=== PATIENT | male | born 1975 | race Caucasian/White ===

== ENCOUNTER 2016-10-05 20:31 | Inpatient (IN) | payer OTHER ==
[~2016-10-05] VITALS: Ht 177.8 cm; Wt 95.3 kg
[~2016-10-05 20:31] MED LIST: CLONAZEPAM1 MG PO; METOPROLOL TAR100 MG PO
--- NOTE | 2016-10-05 21:05 | NUR ---
PT TO ED REQUESTING DETOX FROM ETOH. PMH OF SEIZURES WHEN HE STOPS DRINKING "ON DAY 5" PER MOM. PT C/O ?BENZO WITHDRAWAL. PMH OF ANXIETY, NO BENZOS 3 DAYS. PMH OF ETOH DEPENDANCE. DRANK A PINT OF VOD[place] TODAY, LAST ON THE WAY HERE. MOM ANSWERING MOST QUESTIONS. PT FALLING ASLEEP IN TRIAGE. BP 88/57. PT STATES "I FEEL LIKE MY BLOOD PRESSURE IS THROUGH THE ROOF" "MOM, THIS IS THE WORST WITHDRAWAL I'VE BEEN THROUGH"
--- NOTE | 2016-10-05 21:09 | NUR ---
TO SHANKAR Rondon
--- NOTE | 2016-10-05 21:12 | ED PSYCHIATRIC COMPLAINT ---
History of Present Illness General Chief Complaint: ETOH/Drug Related Complaint Stated Complaint: ETOH Source: patient Exam Limitations: intoxication Vital Signs & Intake/Output Vital Signs & Intake/Output Vital Signs Date Time Temp Pulse Resp B/P B/P Pulse O2 O2 Flow FiO2 Mean Ox Delivery Rate 10/06 1541 97.2 84 14 178/84 10/06 1535 97.2 84 14 17884 Room Air 10/06 1421 98.4 90 18 166/78 10/06 1310 97.2 89 18 182/86 10/06 1309 97.2 89 18 182/86 98 Room Air 10/06 1142 97.1 88 16 120/76 10/06 1140 97.1 88 16 120/76 98 Room Air 10/06 0948 98.9 94 18 122/88 10/06 0946 98.9 94 18 122/88 98 Room Air 10/06 0841 97.9 16 16 110/70 98 Room Air 10/06 0837 97.9 88 16 110/70 10/06 0700 97.1 82 16 104/66 95 Room Air 10/06 0659 97.1 82 16 104/66 10/06 0454 98.2 77 16 105/59 10/06 0453 98.2 77 16 105/59 94 Room Air 10/06 0330 18 10/05 2309 62 22 124/84 10/05 2140 Room Air 10/05 2059 98.1 84 16 88/57 96 Room Air ED Intake and Output 10/06 0000 10/05 1200 Intake Total Output Total Balance Patient 200 lb Weight Weight Estimated Measurement Method Allergies Coded Allergies: NO KNOWN ALLERGIES (08/07/14) Reconcile Medications Acamprosate Calcium (Unknown Strength) TABLET.DR (Unknown Dose) UNKNOWN ( Reported) Bupropion HCl (Bupropion XL) 150 MG TAB.ER.24H 1 TAB PO DAILY MENTAL HEALTH ( Reported) Bupropion HCl (Bupropion XL) 300 MG TAB.ER.24H 1 TAB PO QAM MENTAL HEALTH ( Reported) Escitalopram Oxalate 20 MG TABLET 1 TAB PO DAILY MENTAL HEALTH (Reported) Lorazepam 0.5 MG TABLET 1 TAB PO PRN ANXIETY (Reported) Metoprolol Tartrate 100 MG TABLET 1 TAB PO BID HEART/BP (Reported) Multivitamin (Multi-Day Vitamins) 1 EACH TABLET 1 TAB PO DAILY MENTAL HEALTH (Reported) Valsartan/Hydrochlorothiazide (Valsartan-Hctz 160-12.5 MG Tab) 160 MG-12.5 MG TABLET 1 TAB PO DAILY BP (Reported) Triage Note: PT TO ED REQUESTING DETOX FROM ETOH. PMH OF SEIZURES WHEN HE STOPS DRINKING "ON DAY 5" PER MOM. PT C/O ?BENZO WITHDRAWAL. PMH OF ANXIETY, NO BENZOS 3 DAYS. PMH OF ETOH DEPENDANCE. DRANK A PINT OF VOD[place] TODAY, LAST ON THE WAY HERE. MOM ANSWERING MOST QUESTIONS. PT FALLING ASLEEP IN TRIAGE. BP 88/57. PT STATES "I FEEL LIKE MY BLOOD PRESSURE IS THROUGH THE ROOF" "MOM, THIS IS THE WORST WITHDRAWAL I'VE BEEN THROUGH" Triage Nurses Notes Reviewed? yes Onset: Abrupt Duration: day(s): (4-5) Timing: recent history Severity: moderate, severe Associated Symptoms: anxiety HPI: 40 year old with history of HTN and alcohol abuse who presents for alcohol intoxication. 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 4 days ago he started with 2 bottles of vodka. yesterday he had 1 bottle of vodka and today he drank 3/4 of a bottle. Last drink 8:30 this evening. History of DT's, last seizure 1 year ago. Patient is compliant with metoprolol but unsure about being compliant with other meds because of drinking out to the point of intoxication. No head injuries or seizure activity in the past 4 days. Also reports RLQ abdominal pain. Not eating/drinking properly. Per girlfriend ? passive suicidality. Patient is not si/hi at this time. (GENO OLIVERA MD) Past History Travel History Traveled to [place] past 21 day No Medical History Any Pertinent Medical History? see below for history Neurological: vertigo EENT: allergies Cardiovascular: hypertension, hyperlipidemia Respiratory: bronchitis Gastrointestinal: GERD, POLYP REMOVED Hepatic: ELEVATED LIVER ENZYMES Renal: NONE Musculoskeletal: chronic back pain Psychiatric: alcohol dependence, anxiety, depression Endocrine: diabetes Surgical History Surgical History: non-contributory Psychosocial History Who do you live with Family What is your primary language Malay Tobacco Use: Current Daily Use Daily Tobacco Use Amount/Type: => 5 Cigarettes daily ETOH Use: alcoholic Illicit Drug Use: denies illicit drug use Family History Comment: DM Hx Contributory? No (GENO OLIVERA MD) Review of Systems Review of Systems Constitutional: Denies: chills, fever. EENTM: Reports: no symptoms. Respiratory: Denies: cough, short of breath. Cardiovascular: Denies: chest pain. GI: Reports: abdominal pain. Denies: nausea, vomiting. Genitourinary: Denies: discharge, dysuria. Musculoskeletal: Denies: back pain. Skin: Reports: no symptoms. Neurological/Psychological: Reports: no symptoms. Hematologic/Endocrine: Denies: bruising, bleeding, polyuria, polydipsia. Immunologic/Allergic: Reports: see HPI. All Other Systems: Reviewed and Negative (GENO OLIVERA MD) Physical Exam Physical Exam General Appearance: well developed/nourished, alert, awake, mild distress Head: atraumatic Eyes: Bilateral: PERRL, EOMI. Ears, Nose, Throat: normal pharynx, normal ENT inspection, hearing grossly normal Neck: normal inspection, supple Respiratory: normal breath sounds Cardiovascular: regular rate/rhythm Gastrointestinal: soft, non-tender Extremities: normal range of motion Neurological/Psychiatric: awake, alert, calm Appearance/Memory/Insight: disheveled, impaired insight Behavoir/Eye Contact/Speech: decreased rate of speech Skin: intact, normal color, warm/dry SAD PERSONS Done? patient not suicidal (GENO OLIVERA MD) Progress Differential Diagnosis: ALCOHOL ABUSE, ALCOHOL DEPENDENCE, ETOH WITHDRAWAL Plan of Care: Orders Procedure Date/time Status Regular Diet 10/06 D Active Regular Diet 10/06 B Complete Patient Data 10/06 161 Active OXYGEN SETUP (GEN) 10/06 161 Active Saline Lock 10/06 1611 Active Admit to inpatient 10/06 1611 Active Vital Signs 10/06 1611 Active Activity/Ambulation 10/06 1611 Active Code Status 10/06 1611 Active CASE MANAGEMENT CONSULT 10/06 0954 Active URINE DRUG SCREEN FOR ER ONLY 10/06 0851 Complete Add-on Test (ER Only) 10/06 2203 Active URINALYSIS 10/06 2203 Complete LIPASE 10/05 2134 Complete CIWA 10/06 2123 Active URINE DRUGS OF ABUSE 10/05 2122 Active MAGNESIUM 10/05 2122 Complete ETHANOL 10/05 2122 Complete COMPREHENSIVE METABOLIC PANEL 10/05 2122 Complete CBC WITHOUT DIFFERENTIAL 10/05 2122 Complete Current Medications Sig/Erick Start time Last Medication Dose Stop Time Status Admin Lorazepam 2 MG Q2P PRN 10/06 1000 AC 10/06 (Ativan) 1426 Lorazepam 1 MG ONE PRN 10/06 1000 AC (Ativan) Laboratory Tests 10/06/16 0855: Urine Opiates Screen < 100.00, Methadone Screen 41, Barbiturate Screen < 60, Ur Phencyclidine Scrn < 6.00, Amphetamines Screen 367, U Benzodiazepines Scrn < 85, Urine Cocaine Screen < 50, Urine Cannabis Screen < 5.00, Urine Color YEL, Urine Clarity HAZY H, Urine pH 6.0, Ur Specific [place] 1.025, Urine Protein 30 H, Urine Ketones TRACE H, Urine Nitrite NEG, Urine Bilirubin NEG@ICTO, Urine Urobilinogen 0.2, Ur Leukocyte Esterase NEG, Ur Microscopic SEDIMENT EXAMINED, Urine RBC RARE, Urine WBC 3-5 H, Urine Bacteria FEW H, Hyaline Casts 15-25 H, Urine Mucus FEW, Urine Hemoglobin NEG, Urine Glucose NEG 10/05/16 2135: Anion Gap 17 H, Estimated GFR 49 L, BUN/Creatinine Ratio 12.5, Glucose 118 H, Calcium 9.9, Magnesium 2.0, Total Bilirubin 0.5, AST 72 H, ALT 71, Alkaline Phosphatase 68, Total Protein 8.0, Albumin 5.0, Globulin 3.0, Albumin/Globulin Ratio 1.7, Lipase 162, CBC w Diff NO MAN DIFF REQ, RBC 5.00, MCV 92.0, MCH 30.4, RDW 14.1, MPV 8.4, Gran % 67.6, Lymphocytes % 22.4, Monocytes % 7.6, Eosinophils % 1.8, Basophils % 0.6, Absolute Granulocytes 9.5 H, Absolute Lymphocytes 3.1, Absolute Monocytes 1.1 H, Absolute Eosinophils 0.3, Absolute Basophils 0.1, PUBS MCHC 33.0, Serum Alcohol 400.0 10:47 PM PATIENT REPORTS HE NEEDS ATIVAN FOR BENZO WITHDRAWAL. I EXPLAINED TO HIM THE ALCOHOL DETOX PROTOCOL. ETOH LEVEL IS 400. (JOSELIN GILBERT,GENO) Hand-Off Endorsed To: MIKE MONTGOMERY MD Endorsed Time: 0700 Pending: other (SOBRIETY, CIWA SCORE) (GENO OLIVERA MD) Comments: Ativan prescribed for increasing CIWA. Certified for hospitalization by case management. (MIKE MONTGOMERY MD) Departure Departure Disposition: STILL A PATIENT Condition: Stable Referrals: ARMANDO GILBERT,JUNI Smith JR Additional Instructions: FOLLOW UP WITH THE LIST OF ALCOHOL DETOX CLINICS Departure Forms: Customer Survey General Discharge Information (JOSELIN GILBERT,GENO) Departure Clinical Impression Primary Impression: Alcohol intoxication Qualifiers: Complication of substance-induced condition: with unspecified complication Qualified Code: F10.929 - Alcohol use, unspecified with intoxication, unspecified Admission Note Spoke With: SULY EDGE MD Documentation of Exam: Documentation of any treatments & extenuating circumstances including Concerns Regarding Discharge (functional status, medication knowledge or non-compliance, living conditions, etc.) that warrant an admission rather than observation: Serial CIWA benzodiazepine to prevent alcohol withdrawal DT seizure medication adjustment psychiatric evaluation for alcohol dependence continuing care discharge planning. Alcohol Withdrawl Admission ED Alcohol Detox Admission d/t: CIWA Score >15, Acute MedCond D/T Alcohol (MIKE MONTGOMERY MD)
--- NOTE | 2016-10-05 21:21 | NUR ---
BLOOD PRESSURE RECHECK DONE AND WAS 90/68 IV STARTED BY PINKY BERTRAND AND IVF BOLUS STARTED
[2016-10-05] MEDS ORDERED: BUPROPION XL150 MG PO (21:23)
[2016-10-05] MEDS ORDERED: METOPROLOL TAR100 M1 PO (21:23)
[2016-10-05] MEDS ORDERED: VALSARTAN-HCTZ1 EAC1 PO (21:23)
[2016-10-05] MEDS ORDERED: ACAMPROSATE CA333 M1 (21:24)
[2016-10-05] MEDS ORDERED: ESCITALOPRAM OX20 MG PO (21:24)
[2016-10-05] MEDS ORDERED: LORAZEPAM0.5 M1 PO (21:24)
[2016-10-05] MEDS ORDERED: BUPROPION XL300 M1 PO (21:25)
[2016-10-05] MEDS ORDERED: MULTI-DAY VITA1 EACH PO (21:26)
[2016-10-05 21:57] LABS: ABSOLUTE BASOPHIL COUNT 0.1 /CUMM (0.0-0.2); ABSOLUTE EOSINOPHIL COUNT 0.3 /CUMM (0.0-0.7); ABSOLUTE GRANULOCYTE CT 9.5 /CUMM (1.4-6.5); ABSOLUTE LYMPH COUNT 3.1 /CUMM (1.2-3.4); ABSOLUTE MONOCYTE COUNT 1.1 /CUMM (0.10-0.60); BASOPHIL % 0.6 % (0.0-2.0); EOSINOPHIL % 1.8 % (0-5); GRANULOCYTE % 67.6 % (42.2-75.2); MEAN CORPUSCULAR HGB 30.4 PG (27.0-31.0); MEAN PLATELET VOLUME 8.4 FL (7.4-10.4); PLATELET COUNT 243 /CUMM (130-400); RBC DISTRIBUTION WIDTH 14.1 % (11.5-14.5)
--- NOTE | 2016-10-05 22:39 | NUR ---
DR OLIVERA WITH PATIENT
--- NOTE | 2016-10-05 23:18 | NUR ---
PT MED WITH 2 MG PO ATIVAN ORDERED
[2016-10-06] VITALS (15 sets, daily range): BP systolic 104–182; BP diastolic 59–102
--- NOTE | 2016-10-06 01:00 | NUR ---
PATIENT CHANGED INTO HOSPITAL ISSUED SCRUBS PER PROTOCOL. CLOTHING AND VALUABLES WITH FAMILY
--- NOTE | 2016-10-06 03:30 | NUR ---
THIS RN ASSUMED CARE FOR PATIENT AT THIS TIME. REPORT FROM NIMA BERTRAND. PATIENT RESTING COMFORTABLY IN NO ACUTE DISTRESS AT THIS TIME. AWOKE PATIENT W/O DIFFICULTY TO VERBAL STIMULI. DENIES COMPLAINTS.
--- NOTE | 2016-10-06 04:55 | NUR ---
PT SLEEPING. VSS. NO TREMORS NOTED. CIWA 0
--- NOTE | 2016-10-06 07:01 | NUR ---
ASSUMED CARE AT THIS TIME, PT AWAKE ALERT AND ORIENTED FOR VITALS, STATES THAT HE FEELS LIKE HIS HEART IS GOING TO JUMP OUT OF HIS CHEST, HR 82, COMPLAINS OF FEELING MILD TREMORS, NO VISIBLE TREMORS NOTED AT THIS TIME. CIWA 2
--- NOTE | 2016-10-06 08:42 | NUR ---
PT AWAKE AND ALERT AND AMBULATED TO BATHROOM WITH STEADY GAIT. PT PROVIDED WITH URINE CUP. PT COMPLAINS OF FEELING SLIGHTLY SHAKEY, NO VISIBLE TREMORS NOTED
--- NOTE | 2016-10-06 09:49 | NUR ---
PT COMPLAINS OF HEADACHE SLIGHT NAUSEA , ACHEY ALL OVER , FEELING SWEATY AND SHAKEY. JOON Ernandez MD AWARE
--- NOTE | 2016-10-06 09:55 | NUR ---
PT MEDICATED WITH 2 M G PO ATIVAN PER ORDER FOR CIWA 16. PT REMAINS CALM AND COPERATIVE
--- NOTE | 2016-10-06 11:41 | NUR ---
PT AWAKE AND ALERT AT THIS TIME, STATES THAT HE FEELS A LITTLE BETTER AFTER MEDICINE. PT PROVIDED WITH FOOD TRAY
--- NOTE | 2016-10-06 13:10 | NUR ---
JOON 7 AT THIS TIME, PT COMPLAINS OF FEELING SWEATY, AND JONAH, REHAN TREMORS NOTED AND NO SWEATING NOTED AT THIS TIME . PT WAS SEEN BY CASE MANAGEMENT AND IS UP TO BATHROOM AT THIS TIME
--- NOTE | 2016-10-06 13:20 | NUR ---
Case mgmnt TSF: I introduced myself to patient and explained my role. Patient is still requesting detox. Patient has given verbal consent and consents have been signed. I explained process and made patient aware that I would keep him updated. Case mgmnt continuing to follow.
--- NOTE | 2016-10-06 14:10 | NUR ---
Case mgmt TSF: I have submitted request for auth for patient. I will continue to monitor for possible approval. Case mgmnt continuing to follow.
--- NOTE | 2016-10-06 14:26 | NUR ---
PT MEDICATED WITH 2 MG PO ATIVAN FOR CIWA OF 15. PT NOTED WITH VISIBLE SWEAT BEADS TO FOREHEAD AND MILD VISIBLE TREMORS. COMPLAINS OF SLIGHT HEADACHE AND NAUSEA
--- NOTE | 2016-10-06 15:19 | NUR ---
REPORT RECEIVED; CARE OF PATIENT ASSUMED
--- NOTE | 2016-10-06 17:36 | NUR ---
PT AMBULATE TO RESTROOM. VERBALIZED IMPROVED ANXIETY FROM EARLIER TODAY
--- NOTE | 2016-10-06 18:04 | NUR ---
PT HAS A BED 210-2
--- NOTE | 2016-10-06 18:04 | CT SCAN REPORT ---
EXAMINATION: CT HEAD WITHOUT CONTRAST CLINICAL INFORMATION: Fall 2 days ago. Hit head. COMPARISON: None TECHNIQUE: Contiguous axial imaging was performed from the skull base to vertex without intravenous administration of contrast. DLP: 606.38 mGy-cm FINDINGS: There is no evidence of acute intracranial hemorrhage or territorial infarction. No abnormal mass effect or midline shift is seen. Tuttle to white matter differentiation is well preserved. No extra-axial fluid collections are identified. The ventricles are normal in size. There is no abnormal attenuation within the brain parenchyma. The osseous structures and soft tissues are normal. Small focus of mucosal thickening left ethmoid sinus. Mastoid air cells and middle ear cavities are normally aerated. IMPRESSION: No acute intracranial pathology.
--- NOTE | 2016-10-06 18:05 | History & Physical ---
PEREZ GILBERT,ZHAO 10/06/16 1748: General Information and HPI MD Statement: I have seen and personally examined JULY VERDUGO and documented this H&P. The patient is a 40 year old M who presented with a patient stated chief complaint of [alcohol detoxification]. 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 He His last intoxication was 6 weeks ago, recently 4 days ago because he ran out of the [employer] that was keeping him sober. Started with 2 bottles of vodka, yesterday he had 1 bottle of vodka and today he drank 3/4 of a bottle. Last drink 8:30 this evening. He was very agitated by the time he arrived to ER and most of the questions are answered by his mother. However by the time we interviewed he is doing better, he reported he fell down 2 days ago which resulted in mild head strike with left shoulder & chest pain along with slight erythema on his left conjunctiva. He did report occasional headache, nausea, vomiting and shakiness in his hands after he arrived to ER. He did discharge to rehabilitation services previously without any sucess -- reports depression being the reason behind the issue. He reports pain in his right upper quadrant which he attributes to alcohol -- never evaluated for alcohol related liver injury in the past. He smokes half a pack per day denies any drug use He follows psychiatrist in [facility] Dr. Stanley Allergies/Medications Allergies: Coded Allergies: NO KNOWN ALLERGIES (08/07/14) Home Med list Bupropion HCl (Bupropion XL) 150 MG TAB.ER.24H 1 TAB PO DAILY MENTAL HEALTH ( Reported) Bupropion HCl (Bupropion XL) 300 MG TAB.ER.24H 1 TAB PO QAM MENTAL HEALTH ( Reported) Escitalopram Oxalate 20 MG TABLET 1 TAB PO DAILY MENTAL HEALTH (Reported) Lorazepam 0.5 MG TABLET 1 TAB PO PRN ANXIETY (Reported) Metoprolol Tartrate 100 MG TABLET 1 TAB PO BID HEART/BP (Reported) Multivitamin (Multi-Day Vitamins) 1 EACH TABLET 1 TAB PO DAILY MENTAL HEALTH (Reported) Valsartan/Hydrochlorothiazide (Valsartan-Hctz 160-12.5 MG Tab) 160 MG-12.5 MG TABLET 1 TAB PO DAILY BP (Reported) Compliance With Home Meds: GOOD Past History Travel History Traveled to [place] past 21 day No Medical History Neurological: vertigo EENT: allergies Cardiovascular: hypertension, hyperlipidemia Respiratory: bronchitis Gastrointestinal: GERD, POLYP REMOVED Hepatic: ELEVATED LIVER ENZYMES Renal: NONE Musculoskeletal: chronic back pain Psychiatric: alcohol dependence, anxiety, depression Surgical History Surgical History: non-contributory Past Family/Social History Psychosocial History Where do you live? Home Who Do You Live With? parent Services at Home: None Smoking Status: Current Everyday Smoker ETOH Use: alcoholic Illicit Drug Use: denies illicit drug use Functional Ability ADLs Independent: dressing, eating, toileting, bathing. Ambulation: independent IADLs Independent: shopping, housework, finances, food prep, telephone, transportation , medication admin. Review of Systems Review of Systems Constitutional: Reports: see HPI. EENTM: Reports: see HPI. Cardiovascular: Reports: chest pain. Respiratory: Reports: see HPI. GI: Reports: see HPI. Skin: Reports: see HPI. Exam & Diagnostic Data Last 24 Hrs of Vital Signs/I&O Vital Signs Date Time Temp Pulse Resp B/P B/P Pulse O2 O2 Flow FiO2 Mean Ox Delivery Rate 10/06 1738 98.2 78 16 154/82 Room Air 10/06 1737 98.2 78 16 154/82 10/06 1637 96.9 84 16 132/84 10/06 1632 96.9 84 16 132/84 Room Air 10/06 1541 97.2 84 14 178/84 10/06 1535 97.2 84 14 178/84 Room Air 10/06 1421 98.4 90 18 166/78 10/06 1310 97.2 89 18 182/86 10/06 1309 97.2 89 18 182/86 98 Room Air 10/06 1142 97.1 88 16 120/76 10/06 1140 97.1 88 16 120/76 98 Room Air 10/06 0948 98.9 94 18 122/88 10/06 0946 98.9 94 18 122/88 98 Room Air 10/06 0841 97.9 16 16 110/70 98 Room Air 10/06 0837 97.9 88 16 110/70 10/06 0700 97.1 82 16 104/66 95 Room Air 10/06 0659 97.1 82 16 104/66 10/06 0454 98.2 77 16 105/59 10/06 0453 98.2 77 16 105/59 94 Room Air 10/06 0330 18 10/05 2309 62 22 124/84 10/05 2140 Room Air 10/05 2059 98.1 84 16 88/57 96 Room Air Intake & Output 10/06 1600 10/06 0800 10/06 0000 Intake Total Output Total Balance Patient 90.718 kg Weight Weight Estimated Measurement Method Physical Exam General Appearance Alert, Oriented X3, Cooperative, No Acute Distress Skin No Rashes, No Breakdown Skin Temp/Moisture Exam: Warm/Dry HEENT Atraumatic, PERRLA, EOMI Neck Supple, No JVD Cardiovascular Normal S1, Normal S2 Lungs Clear to Auscultation, Normal Air Movement, mild crackles at bases Abdomen Normal Bowel Sounds, Soft, No Tenderness, bruising in the left flank region Neurological Normal Gait, Normal Speech, Strength at 5/5 X4 Ext, Normal Tone, Sensation Intact, Cranial Nerves 3-12 NL Extremities No Clubbing, No Cyanosis, No Edema Vascular Normal Pulses, Pulses Symmetrical Body Front and Back (Adult) 1) conjunctival erythema 2) bruise secondary to fall 3) abdominal pain 4) shoulder and chest pain Last 24 Hrs of Labs/Brain: Laboratory Tests 10/06/16 0855: Urine Opiates Screen < 100.00, Methadone Screen 41, Barbiturate Screen < 60, Ur Phencyclidine Scrn < 6.00, Amphetamines Screen 367, U Benzodiazepines Scrn < 85, Urine Cocaine Screen < 50, Urine Cannabis Screen < 5.00, Urine Color YEL, Urine Clarity HAZY H, Urine pH 6.0, Ur Specific [place] 1.025, Urine Protein 30 H, Urine Ketones TRACE H, Urine Nitrite NEG, Urine Bilirubin NEG@ICTO, Urine Urobilinogen 0.2, Ur Leukocyte Esterase NEG, Ur Microscopic SEDIMENT EXAMINED, Urine RBC RARE, Urine WBC 3-5 H, Urine Bacteria FEW H, Hyaline Casts 15-25 H, Urine Mucus FEW, Urine Hemoglobin NEG, Urine Glucose NEG 10/05/16 2135: Anion Gap 17 H, Estimated GFR 49 L, BUN/Creatinine Ratio 12.5, Glucose 118 H, Calcium 9.9, Magnesium 2.0, Total Bilirubin 0.5, AST 72 H, ALT 71, Alkaline Phosphatase 68, Total Protein 8.0, Albumin 5.0, Globulin 3.0, Albumin/Globulin Ratio 1.7, Lipase 162, CBC w Diff NO MAN DIFF REQ, RBC 5.00, MCV 92.0, MCH 30.4, RDW 14.1, MPV 8.4, Gran % 67.6, Lymphocytes % 22.4, Monocytes % 7.6, Eosinophils % 1.8, Basophils % 0.6, Absolute Granulocytes 9.5 H, Absolute Lymphocytes 3.1, Absolute Monocytes 1.1 H, Absolute Eosinophils 0.3, Absolute Basophils 0.1, PUBS MCHC 33.0, Serum Alcohol 400.0 Assessment/Plan Assessment: Patient is a 40 YO M with PMH significant for Anxitey, 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 He is afebrile, pulse 84, blood pressure 88/57 mmHg, on room air at admission. Last significant for white count of 14, GFR 49, creatinine 1.6, hazy urine with trace ketones. AST/ALT 72/71, ALP 68. Serum alcohol level of 400. Patient is admitted for alcohol withdrawal as his see for scores in ER are around 15 requiring detoxification. Plan Admitted to general medicine floor Alcohol detoxification * Serum alcohol level of 400, history of seizures with the delirium tremens * Patient is at high risk for seizures and delirium tremens the next 48-72 hours * CIWA protocol with Ativan 2 mg every 6, every 6 hours, Ativan 1 mg every hour when necessary * Banana bag * Monitor electrolytes * Psych and social consult Mechanical fall * Chest pain/left shoulder pain/bruise in the left groin region * Left shoulder x-ray and CT scan head is negative for any acute pathology * Pain management ADELA * Creatinine 1.6 with GFR 49 * Fluids with normal saline @ 75ml/hr * Holding valsartan at this moment * Continue metoprolol 100 mg twice a day Depression * Continue Lexapro 20 mg daily DVT prophylaxis * Alps CODE STATUS * Full code As Ranked By This Provider Problem List: 1. Alcohol intoxication Qualifiers Complication of substance-induced condition: with unspecified complication Qualified Code: F10.929 - Alcohol use, unspecified with intoxication, unspecified 2. Alcohol abuse 3. ADELA (acute kidney injury) Core Measures/Miscellaneous Acute Coronary Syndrome ACS Diagnosis: No Cerebrovascular Accident CVA/TIA Diagnosis: No Congestive Heart Failure CHF Diagnosis: No VTE (View Protocol) VTE Risk Factors: Age > 40 [facility] d/t: No contraindications No VTE Pharm Prophylaxis d/t: No contraindications VTE Diagnosis: No VTE Type: NONE VTE Confirmed by (Test): NONE Sepsis (View Protocol) Severe Sepsis Present: No Septic Shock Septic Shock Present: No Miscellaneous Documentation Attending Case Discussed With: SULY EDGE MD Primary Care Physician: ANGELI BROWN MD Patient sees these Specialists unknown Level of Patient Care: General Medicine KELBY SAMSON 10/06/16 1807: Resident Review Statement Resident Statement: examined this patient, discussed with clinical nursing intern, agreed with clinical nursing intern Other Findings: This is a 40-year-old gentleman with past medical history significant for retention, depression, anxiety, EtOH dependence with history of withdrawal seizures(last seizure one year ago), who presents to the hospital for alcohol detox. According to the patient, he was sober for 1.5 months until 4 days ago when he started drinking again. He reports drinking 2 bottles of vodka. He also reports falling 2 days ago hitting left side of his head, landing on his left shoulder and left flank. Also has left lower quadrant abdominal pain. Denies SI/HI. Physical exam at the time of admission:VSS,NAD, HEENT: HNCAT, PERRLA, EOMI. Neck: Supple, no JVD, no carotid bruit, no lymphadenopathy. CV: RRR, no murmur. Chest: CTA BL. Abdomen: Normal bowel sounds, soft, ND, tenderness to palpation in right lower quadrant, no rebound. Extremities: Limited active range of motion left shoulder. Passive range of motion intact. No lower extremity edema , pulses normal and symmetrical. Limited range of motion on right lower extremity. Neurology:AAO 3, cranial nerves II-12 intact, normal reflexes skin: Ecchymosis noted on left flank. Available labs and Dx data reviewed. Problem list * ETOH withdrawal * Elevated creatinine * h/o HTN * anxiety/depression Plan: * Vs per protocol * CIWA * IV ativan per CIWA * PO ativan 2mg q6 * IV fluids * psych and social consult * smoking cessation counseling provided; patient would like to try [facility] to help him quit. * IV banana bag x1 * multivitamin /thiamine/folate starting tomorrow. * Head CT and shoulder/rib xray given h/o recent fall * c/w VALVER metoprolol and lexapro * Holding valsartan/HCTZ given elevated creatinine * DVT PPX at all times * Pt is full code SULY EDGE MD 10/07/16 1255: Attending MD Review Statement Attending Statement Attending MD Statement: examined this patient, discuss w/resident/PA/TOWER SUPERVISOR, agreed w/resident/PA/TOWER SUPERVISOR, reviewed EMR data (avail) Attending Assessment/Plan: 40M PMH EtOH abuse returns with agitation, unsteady gait, CIWA 15-20 in ED, with fall and left shoulder and rib pain. To be admitted for alcohol withdrawal, Ativan standing and PRN, CT head, rib x-ray, IV hydration, social work consult, DVT PPx.
--- NOTE | 2016-10-06 18:09 | NUR ---
PT HAS A BED 210-2
--- NOTE | 2016-10-06 18:27 | RADIOLOGY REPORT ---
EXAMINATION: RIBS AND SHOULDER, LEFT CLINICAL INFORMATION: Status post fall with pain and ecchymosis. COMPARISON: None TECHNIQUE: 4 views of the left shoulder, PA chest x-ray and 3 views of the left-sided ribs. FINDINGS: RIBS: There is mild deformity involving the posterior left ninth and 10th ribs laterally with findings most consistent with old healed fractures, no acute displaced fractures are identified. The cardiomediastinal silhouette is unremarkable. The lungs and pleural spaces appear clear without evidence of congestion, consolidation, or significant appearing effusion or atelectasis. There is no evidence of pneumothorax or pulmonary edema. Left shoulder: Bone mineral density is maintained without evidence of fracture or dislocation. No focal osseous lesions are seen. Joint space is maintained without productive or erosive changes. IMPRESSION: 1. Findings most consistent with old healed left rib fractures. 2. No acute fractures are identified. 3. The lungs are clear without evidence of contusion hemothorax or pneumothorax.
--- NOTE | 2016-10-06 18:57 | NUR ---
REPORT TO ANUM BERTRAND ON 2NB
[2016-10-07] VITALS: BP 144/80
[2016-10-07 06:52] VITALS: BP 136/74
--- NOTE | 2016-10-07 07:14 | PN- Housestaff ---
PEREZ GILBERT,ZHAO 10/07/16 0713: Subjective Follow-up For: Alcohol withdrawl Subjective: I saw and examined the patient today morning He is doing well, no overnight events. He reports shakiness in his hands. slept well. Review of Systems Constitutional: Reports: see HPI. Objective Last 24 Hrs of Vital Signs/I&O Vital Signs Date Time Temp Pulse Resp B/P B/P Pulse O2 O2 Flow FiO2 Mean Ox Delivery Rate 10/07 0652 98.1 90 16 136/74 97 Room Air 10/06 2230 98.7 89 16 144/80 96 Room Air 10/06 2139 89 144/80 10/06 2100 98.7 89 16 144/80 10/06 2000 99.0 95 18 142/102 10/06 1921 99.0 95 18 142/102 96 Room Air 10/06 1843 98.3 78 18 148/78 10/06 1842 98.3 78 18 148/78 Room Air 10/06 1738 98.2 78 16 154/82 Room Air 10/06 1737 98.2 78 16 154/82 10/06 1637 96.9 84 16 132/84 10/06 1632 96.9 84 16 132/84 Room Air 10/06 1541 97.2 84 14 178/84 10/06 1535 97.2 84 14 178/84 Room Air 10/06 1421 98.4 90 18 166/78 10/06 1310 97.2 89 18 182/86 10/06 1309 97.2 89 18 182/86 98 Room Air 10/06 1142 97.1 88 16 120/76 10/06 1140 97.1 88 16 120/76 98 Room Air 10/06 0948 98.9 94 18 122/88 10/06 0946 98.9 94 18 122/88 98 Room Air 10/06 0841 97.9 16 16 110/70 98 Room Air 10/06 0837 97.9 88 16 110/70 Intake & Output 10/07 0800 10/07 0000 10/06 1600 Intake Total 625 300 Output Total Balance 625 300 Intake, IV 625 Intake, Oral 300 Patient 95.254 kg Weight Weight Reported by Patient Measurement Method Physical Exam General Appearance: Alert, Oriented X3, Cooperative, No Acute Distress Skin: No Rashes, No Breakdown HEENT: Atraumatic, PERRLA, EOMI Neck: Supple Cardiovascular: Normal S1, Normal S2 Lungs: Clear to Auscultation, Normal Air Movement Abdomen: Normal Bowel Sounds, Soft, No Tenderness Neurological: Normal Gait, Normal Speech, Strength at 5/5 X4 Ext, Normal Tone, Sensation Intact Extremities: No Clubbing, No Cyanosis, No Edema Current Medications: Current Medications Sig/Erick Start time Last Medication Dose Route Stop Time Status Admin Cyanocobalamin/ 1 BAG 0 10/06 2130 DC 10/06 Thiamine/Pyridoxine IV 10/07 0529 2140 Sodium Chloride 1,000 ML Cyanocobalamin/ 1 BAG DAILY 10/06 1758 CAN Thiamine/Pyridoxine IV 10/07 0157 Sodium Chloride 1,000 ML Escitalopram Oxalate 20 MG DAILY 10/07 1000 AC PO Folic Acid 1 MG DAILY 10/07 1000 AC PO Lorazepam 0 .STK-MED ONE 10/06 1852 DC .ROUTE Lorazepam 0 Q1P PRN 10/06 1800 AC IV Lorazepam 2 MG Q6 10/06 1800 AC 10/07 PO 0550 Lorazepam 0 .STK-MED ONE 10/06 1431 DC PO Lorazepam 2 MG Q2P PRN 10/06 1000 AC 10/06 PO 2018 Lorazepam 1 MG ONE PRN 10/06 1000 AC PO Lorazepam 0 .STK-MED ONE 10/06 1000 DC PO Metoprolol Tartrate 100 MG BID 10/06 2200 AC 10/06 PO 2139 Multivitamins 1 TAB DAILY 10/07 1000 AC PO Nicotine 14 MG 2030 10/06 2030 AC 10/06 TOP 2051 Nicotine 14 MG DAILY 10/06 1920 PA TOP Thiamine HCl 100 MG DAILY 10/07 1000 AC PO Last 24 Hrs of Lab/Brain Results Last 24 Hrs of Labs/Mics: Laboratory Tests 10/06/16 0855: Urine Opiates Screen < 100.00, Methadone Screen 41, Barbiturate Screen < 60, Ur Phencyclidine Scrn < 6.00, Amphetamines Screen 367, U Benzodiazepines Scrn < 85, Urine Cocaine Screen < 50, Urine Cannabis Screen < 5.00, Urine Color YEL, Urine Clarity HAZY H, Urine pH 6.0, Ur Specific [place] 1.025, Urine Protein 30 H, Urine Ketones TRACE H, Urine Nitrite NEG, Urine Bilirubin NEG@ICTO, Urine Urobilinogen 0.2, Ur Leukocyte Esterase NEG, Ur Microscopic SEDIMENT EXAMINED, Urine RBC RARE, Urine WBC 3-5 H, Urine Bacteria FEW H, Hyaline Casts 15-25 H, Urine Mucus FEW, Urine Hemoglobin NEG, Urine Glucose NEG Assessment/Plan Assessment: Patient is a 40 YO M with PMH significant for Anxitey, 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 He is afebrile, pulse 84, blood pressure 88/57 mmHg, on room air at admission. Last significant for white count of 14, GFR 49, creatinine 1.6, hazy urine with trace ketones. AST/ALT 72/71, ALP 68. Serum alcohol level of 400. Patient is admitted for alcohol withdrawal as his see for scores in ER are around 15 requiring detoxification. Plan Admitted to general medicine floor Alcohol detoxification * Serum alcohol level of 400, history of seizures with the delirium tremens * Patient is at high risk for seizures and delirium tremens the next 48-72 hours * CIWA protocol with Ativan 1 mg every hour when necessary * Scheduled Ativan tapered to 2mg TID -- CIWA scores trending down * folic acid/thiamine/multivitamin * Monitor electrolytes * Psych and social consult Mechanical fall * Chest pain/left shoulder pain/bruise in the left groin region * Left shoulder x-ray and CT scan head is negative for any acute pathology * Pain management ADELA * Creatinine 1.6 with GFR 49 -- repeat BEP tomorrow * Fluids with normal saline @ 75ml/hr * Holding valsartan at this moment * Continue metoprolol 100 mg twice a day Depression * Continue Lexapro 20 mg daily * Bupropion discontinued at this moment * We will start on Campral 66mg TID on the day of discharge. DVT prophylaxis * Alps CODE STATUS * Full code Problem List: 1. Alcohol abuse 2. Alcohol intoxication 3. ADELA (acute kidney injury) Pain Ratin Pain Location: n/a Pain Goal: Pain 4 or less Pain Plan: tylenol prn Tomorrow's Labs & Rationales: bep to monitor Cr SULY EDGE MD 10/07/16 1256: Attending MD Review Statement Attending Statement Attending MD Statement: examined this patient, discuss w/resident/PA/ASSISTANT PROFESSOR OF ANTHROPOLOGY, agreed w/resident/PA/ASSISTANT PROFESSOR OF ANTHROPOLOGY, reviewed EMR data (avail) Attending Assessment/Plan: 40M PMH EtOH abuse admitted for alcohol withdrawal, unsteady gait, and fall. CT head negative. Rib and shoulder x-rays show old fractures, no acute. CIWA controlled overnight aside from a value of 20 at 8pm. Will continue current management.
[2016-10-07 08:00] VITALS: BP 136/74
--- NOTE | 2016-10-07 14:22 | NUR ---
Referral received this am via electronic border guard. This patient is a 40 year old man, admitted to the hospital yesterday afternoon with ETOH Withdrawal. Patient placed on the CIWA for observation; most recently scoring a 4 in the domains of anxiety and agitation. Overnight, he was as high as a 20. I met with patient this am. He was alert and orieted; pleasant and engaged in interview. Reports some "foggieness" related to ativan; he has received 11 mg in the past day. Thomas reports a detox inpatient at [facility] earlier this year; no formal aftercare plan. He did attend AA and has over the course ot years, found AA to be more helpful than an IOP "Where everyone is court mandated to attend". Currently ; Thomas lives with his mother in [place]. Sees his children once a week; his relationship with his ex- is contentious. Has seen a psychiatric provider in the past, but not sure of whether or not he wishes to continue. Has expressed interest in meeting with a clinician for [facility]; case discussed with Amber Salazar APRN from psychiatry. Thomas does not want a referral to IOP; says his preference would be return to AA and be able to work. Follow.
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
[2016-10-07 14:36] VITALS: BP 134/74
[2016-10-07 20:00] VITALS: BP 134/74
[2016-10-07 22:00] VITALS: BP 132/84
[2016-10-08] VITALS (8 sets, daily range): BP systolic 132–146; BP diastolic 84–98
--- NOTE | 2016-10-08 02:01 | NUR ---
NURSING NOTE: PT BP 140/92. DENIES ANY CARDIAC SX, VISUAL CHANGES, HEAD ACHE. HAS HX HTN. MD PADILLA NOTIFIED.
--- NOTE | 2016-10-08 07:08 | PN- Housestaff ---
PEREZ GILBERT,ZHAO 10/08/16 0707: Subjective Follow-up For: Alcohol withdrawl Subjective: I saw and examined the patient today morning He is looking much better, slept well. Able to eat and ambulate. Denies any headache, nausea, vomiting. Review of Systems Constitutional: Reports: see HPI. Comments: ROS negative except the above Objective Last 24 Hrs of Vital Signs/I&O Vital Signs Date Time Temp Pulse Resp B/P B/P Pulse O2 O2 Flow FiO2 Mean Ox Delivery Rate 10/08 0608 98.0 74 20 136/86 96 Room Air 10/08 0600 98.0 74 20 136/86 10/08 0400 97.9 83 18 132/84 10/08 0200 97.8 69 20 140/92 10/08 0158 140/92 10/08 0153 97.8 69 20 140/98 98 Room Air 10/08 0000 97.9 83 18 132/84 10/07 2200 97.9 83 18 132/84 10/07 2153 97.9 83 18 98 Room Air 10/07 2112 80 132/84 10/07 2000 98.0 88 18 134/74 10/07 1436 98.0 88 18 134/74 98 Room Air 10/07 1042 92 132/70 10/07 0800 98.1 90 16 136/74 Intake & Output 10/08 0800 10/08 0000 10/07 1600 Intake Total 276 287 3771 Output Total Balance 606 611 5460 Intake, IV 400 800 Intake, Oral 250 500 420 Physical Exam General Appearance: Alert, Oriented X3, Cooperative Skin: No Rashes, No Breakdown HEENT: Atraumatic, PERRLA, EOMI, erythema on the left conjunctival region Neck: Supple Cardiovascular: Normal S1, Normal S2 Lungs: Clear to Auscultation, Normal Air Movement Abdomen: Normal Bowel Sounds, Soft, No Tenderness Neurological: Normal Gait, Normal Speech, Strength at 5/5 X4 Ext, Normal Tone, Sensation Intact Extremities: No Clubbing, No Cyanosis, No Edema Current Medications: Current Medications Sig/Erick Start time Last Medication Dose Route Stop Time Status Admin Calcium Carbonate 500 MG ONCE ONE 10/07 2229 DC 10/07 PO 10/07 2230 2247 Escitalopram Oxalate 20 MG DAILY 10/07 1000 AC 10/07 PO 1041 Folic Acid 1 MG DAILY 10/07 1000 AC 10/07 PO 1041 Lorazepam 2 MG Q8 10/07 2200 AC 10/08 PO 0518 Lorazepam 0 Q1P PRN 10/06 1800 AC IV Lorazepam 2 MG Q6 10/06 1800 DC 10/07 PO 1226 Lorazepam 2 MG Q2P PRN 10/06 1000 AC 10/06 PO 2018 Lorazepam 1 MG ONE PRN 10/06 1000 AC 10/07 PO 1921 Metoprolol Tartrate 100 MG BID 10/06 2200 AC 10/07 PO 2112 Multivitamins 1 TAB DAILY 10/07 1000 AC 10/07 PO 1042 Nicotine 14 MG 2030 10/06 2030 AC 10/07 TOP 1921 Patient Medication 1 ED .STK-MED ONE 10/07 1330 DC Teaching ED 10/07 1331 Sodium Chloride 1,000 ML Q10H 10/07 0945 DC 10/07 IV 10/07 1944 1040 Thiamine HCl 100 MG DAILY 10/07 1000 AC 10/07 PO 1042 Last 24 Hrs of Lab/Brain Results Last 24 Hrs of Labs/Mics: Laboratory Tests 10/08/16 0608: Anion Gap 9, Estimated GFR > 60, BUN/Creatinine Ratio 22.5 Assessment/Plan Assessment: Patient is a 40 YO M with PMH significant for Anxitey, 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 He is afebrile, pulse 84, blood pressure 88/57 mmHg, on room air at admission. Last significant for white count of 14, GFR 49, creatinine 1.6, hazy urine with trace ketones. AST/ALT 72/71, ALP 68. Serum alcohol level of 400. Patient is admitted for alcohol withdrawal as his see for scores in ER are around 15 requiring detoxification. Plan Admitted to general medicine floor Alcohol detoxification * Serum alcohol level of 400, history of seizures with the delirium tremens * Patient is at high risk for seizures and delirium tremens the next 48-72 hours * CIWA scores trended down well, so tapered down to 1mg TID today-->1mg BID tomorrow --> 1mg once the next day * folic acid/thiamine/multivitamin * Psych and social consult -- appreciate their recommendations * Patient wants to follow up with his own psychiatrist for now. * Stable for discharge, however after discharge patient was not provided with scripts and he came back for script. * I spoke with his pharmacy ([email or web address]) -- gave scripts to them. He had an old prescription in his pharmacy (lorazepam 0.5mg) for a month which was discontinued by me. Patient requested to continue that. I informed clearly that I am not able to, as I already discontinued in his medications currently and I leave to my Psychiatrist decision for now -- Marie Peterson. Mechanical fall * Chest pain/left shoulder pain/bruise in the left groin region * Left shoulder x-ray and CT scan head is negative for any acute pathology * Pain management ADELA * Resolved with hydration -- resume hypertensive medications Depression * Continue Lexapro 20 mg daily * Bupropion discontinued at this moment * We will start on Campral 66mg TID on the day of discharge. DVT prophylaxis * Alps CODE STATUS * Full code Problem List: 1. Alcohol abuse 2. Alcohol intoxication 3. ADELA (acute kidney injury) Pain Ratin Pain Location: n/a Pain Goal: Pain 4 or less Pain Plan: tylenol prn Tomorrow's Labs & Rationales: NONE LUCIANO JOHNSON 10/08/16 0919: Assessment/Plan Assessment: Feels well. Low CIWA scores. Decrease Ativan to 2 mg Q12. Patient has plan in place. Discharge later today with two Ativan 2 mg pills (one tonight and one tomorrow), pending final plan with psych and social work. ADELA improved, pre renal, encouraged hydration. SULY EDGE MD 10/08/16 1119: Attending MD Review Statement Attending Statement Attending MD Statement: examined this patient, discuss w/resident/PA/ADMISSIONS CLERK, agreed w/resident/PA/ADMISSIONS CLERK, reviewed EMR data (avail) Attending Assessment/Plan: 40M PMH EtOH abuse admitted with alcohol withdrawal. Patient is doing extremely well today. He is at his baseline and is not displaying any signs or symptoms of withdrawal. CIWA scores controlled overnight. Hemodynamically stable. Patient is stable for discharge home with PO Ativan taper. He has seen our delinquency prevention social worker and is set up for outpatient follow up. He is motivated and committed to his sobriety.
[2016-10-08] MEDS ORDERED: ACAMPROSATE CA333 M1 PO ×2 (11:13→11:23)
[2016-10-08] MEDS ORDERED: ATIVAN1 M1 PO ×2 (11:27→11:33)
--- NOTE | 2016-10-08 11:31 | Patient Discharge Instructions ---
Discharge Instructions General Discharge Information You were seen/treated for: Alcohol detoxification Special Instructions: Please follow up with your PCP in a week Please start taking welbutrin from october 11 starting 150mg XL for 4days, followed by 300mg for the next 4days. After 8days of taking welbutrin call your psychiatrist. Please follow up with your current psychiatrist. If requires additional resources can follow up with [facility] program Diet Continue normal diet: Yes Activity Full Activity/No Limits: Yes Acute Coronary Syndrome Inclusion Criteria At DC or during hospital stay patient has or had the following: ACS DIAGNOSIS No Discharge Core Measures Meds if any: Prescribed or Continued at Discharge Meds if any: NOT Prescribed or Continued at Discharge Congestive Heart Failure Inclusion Criteria At DC or during hospital stay patient has or had the following: CHF DIAGNOSIS No Discharge Core Measures Meds if any: Prescribed or Continued at Discharge Meds if any: NOT Prescribed or Continued at Discharge Cerebrovascular accident Inclusion Criteria At DC or during hospital stay patient has or had the following: CVA/TIA Diagnosis No Discharge Core Measures Meds if any: Prescribed or Continued at Discharge Meds if any: NOT Prescribed or Continued at Discharge Venous thromboembolism Inclusion Criteria VTE Diagnosis No VTE Type NONE VTE Confirmed by (Test) NONE Discharge Core Measures - Per Current guidelines, there needs to be overlap - treatment for the first 5 days of Warfarin therapy. - If discharged on Warfarin prior to 5 days of - overlap therapy, the patient will need to be - assessed for post discharge needs including - *Post discharge parental anticoagulation - *Warfarin and/or parental anticoagulation education - *Follow up date to check INR post discharge At least 5 days overlap therapy as Inpatient No Meds if any: Prescribed or Continued at Discharge Note: Overlap Therapy is Warfarin and Anticoagulant Meds if any: NOT Prescribed or Continued at Discharge
--- NOTE | 2016-10-08 16:20 | Discharge Summary ---
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 He is afebrile, pulse 84, blood pressure 88/57 mmHg, on room air at admission. Last significant for white count of 14, GFR 49, creatinine 1.6, hazy urine with trace ketones. AST/ALT 72/71, ALP 68. Serum alcohol level of 400. Patient is admitted for alcohol withdrawal as his see for scores in ER are around 15 requiring detoxification. Plan Admitted to general medicine floor Alcohol detoxification Serum alcohol level of 400 at admission with history of seizures with the delirium tremens. His CIWA scores trended down well with hospital course remaining uneventful. So tapered down ativan per protocol 20-35% a day ( 2mg Q6 --> 2mg Q8 --> 1mg Q8 -->1mg Q12 --> 1mg once). A single banana bag at admission followed by folic acid/thiamine/multivitamin supplementation provided. Psych and social consulted. Patient wants to follow up with his own psychiatrist for now. Patient initially discharged without his scripts, however I spoke with his pharmacy and gave a script directly ([facility]). I discontinued his lorazepam 0.5mg (30) script at this time. However patient insisted on continuing it informing that his PCP (who gave the script) is on vacation and cannot work without the mediacation due to anxiety attacks. Patient declines communicating directly with his psychiatrist, so we managed patient as per the primary team and psychiatric recommendations. Mechanical fall 2 days prior to admission fell down while trying to switch on light in a dark room. At admission found to have Chest pain/left shoulder pain/bruise in the left groin region. Left shoulder x-ray and CT scan head is negative for any acute pathology. Symptomatic treatment provided. ADELA At admission had a Cr of 1.6 with GFR 49, back to baseline after adequate rehydration. He was continued on metoprolol 100 mg twice a day holding valsartan initially. Eventually continued all the medications at discharge. Depression he was continued on Lexapro 20 mg daily. He discontinued Bupropion at this moment. We will start on Campral 66mg TID on the day of discharge. DVT prophylaxis Alps Complications: none Allergies: Coded Allergies: NO KNOWN ALLERGIES (08/07/14) Significant Procedures: head CT at admission on 10/06/16 IMPRESSION: No acute intracranial pathology. Rib Xray and shoulder xray - left side at admission on 10/06/16 IMPRESSION: 1. Findings most consistent with old healed left rib fractures. 2. No acute fractures are identified. 3. The lungs are clear without evidence of contusion hemothorax or pneumothorax. Pertinent Lab Results: as above Disposition Summary Disposition Principal Diagnosis: Alcohol detoxification Additional Diagnosis: Mechanical fall ADELA Discharge Disposition: home or self care Discharge Instructions General Discharge Information Code Status: Full Code Patient's Diet: Regular diet Patient's Activity: Full activity as tolerated Follow-Up Instructions/Appts: Please follow up with your PCP in a week Please start taking welbutrin from october 11 starting 150mg XL for 4days, followed by 300mg for the next 4days. After 8days of taking welbutrin call your psychiatrist. Please follow up with your current psychiatrist. If requires additional resources can follow up with [facility] program Medications at Discharge Discharge Medications: Stop taking the following medications: Lorazepam (Lorazepam) 0.5 MG TABLET ORAL as needed for ANXIETY Qty = 45 Continue taking these medications: Metoprolol Tartrate (Metoprolol Tartrate) 100 MG TABLET 1 Tablet ORAL TWICE DAILY Qty = 60 Comments: Last Taken: 10/08/16 Time: 1000 AM Valsartan/Hydrochlorothiazide (Valsartan-Hctz 160-12.5 MG Tab) 160 MG-12.5 MG TABLET 1 Tablet ORAL DAILY Qty = 30 Comments: NOT GIVEN IN HOSPITAL Bupropion HCl (Bupropion XL) 150 MG TAB.ER.24H 1 Tablet ORAL DAILY Qty = 30 Comments: NOT GIVEN DURING THIS ADMISSION Escitalopram Oxalate (Escitalopram Oxalate) 20 MG TABLET 1 Tablet ORAL DAILY Qty = 30 Comments: Last Taken: 10/08/16 Time: 1000 AM Bupropion HCl (Bupropion XL) 300 MG TAB.ER.24H 1 Tablet ORAL Every Morning Qty = 30 Comments: NOT GIVEN DURING THIS ADMISSION Multivitamin (Multi-Day Vitamins) 1 EACH TABLET 1 Tablet ORAL DAILY Comments: Last Taken: 10/08/16 Time: 0950 AM Acamprosate Calcium (Acamprosate Calcium) 333 MG TABLET.DR 2 Tablet ORAL THREE TIMES DAILY Comments: NOT GIVEN DURING THIS ADMISSION Start taking the following new medications: Lorazepam (Ativan) 1 MG TABLET 1 Tablet ORAL SEE INSTRUCTIONS Qty = 4 No Refills Instructions: 10/08/16 -- please take one pill tonight after discharge 10/09/16 - Please take one pill after breakfast and dinner 10/10/16 - please take one pill in am with breakfast then STOP Comments: Last Taken: 10/08/16 Time: 1:12 PM Copies To: STEPHANIE IGLBERT,ANGELI Grissom Attending Review Statement Documenting Attending: SULY EDGE MD
--- NOTE | 2016-10-09 08:00 | NUR ---
Late Entry: Aware of patients discharge yesterday. Patient had not been interested in formal referral to programming, instead voicing preference for AA. Thomas was evaluated by psychiatry on 10/07/16 and agreed to begin taking his psychiatric medications as prescribed and to return to prescriber. Of note, he had declined to allow us to contact his prescriber prior to discharge.
== END 2016-10-08 15:30 | DRG 775 ==
LOC: ERH 20:31 → ERHI 10-06 16:11 → 2NB 10-06 16:11 → ENRESERV 10-06 17:58 → ENTRNSPT 10-06 18:57 → 2NB 10-06 19:05 → CMPTRNSPT 10-06 19:15 → ENPENDDIS 10-08 13:20 → 2NB 10-08 15:30
PROVIDERS: Emergency Medicine; ADMIT Internal Medicine
DX: F10.239 Alcohol dependence with withdrawal, unspecified (principal); N17.9 Acute kidney failure, unspecified; F41.9 Anxiety disorder, unspecified; I10 Essential (primary) hypertension; F17.210 Nicotine dependence, cigarettes, uncomplicated; E78.5 Hyperlipidemia, unspecified; K21.9 Gastro-esophageal reflux disease without esophagitis; F32.9 Major depressive disorder, single episode, unspecified; R26.89 Other abnormalities of gait and mobility
CPT/HCPCS: 2NBSP; 36415; 71100-LT; 73030-LT; 80307; 81001; 82436; 96360; G0480; J3490